=== PATIENT | male | born 1970 | race Caucasian/White ===

== ENCOUNTER 2018-08-13 11:18 | Outpatient (CLI) | payer OTHER | END 2018-08-13 11:19 | disposition home or self-care (01) | LOC: DTY/OP 11:18 | PROVIDERS: ATTEND Specialist | DX: Z01.818 Encounter for other preprocedural examination (principal); E66.01 Morbid (severe) obesity due to excess calories | CPT/HCPCS: 97802 ==

== ENCOUNTER 2018-09-13 11:19 | Outpatient (CLI) | payer OTHER | END 2018-09-13 11:20 | disposition home or self-care (01) | LOC: DTY/OP 11:19 | PROVIDERS: ATTEND Specialist | DX: Z01.818 Encounter for other preprocedural examination (principal); E66.01 Morbid (severe) obesity due to excess calories | CPT/HCPCS: 97802 ==

== ENCOUNTER 2018-10-11 11:38 | Outpatient (CLI) | payer OTHER | END 2018-10-11 11:39 | disposition home or self-care (01) | LOC: DTY/OP 11:38 | PROVIDERS: ATTEND Specialist | DX: Z01.818 Encounter for other preprocedural examination (principal); E66.01 Morbid (severe) obesity due to excess calories | CPT/HCPCS: 97802 ==

== ENCOUNTER 2018-11-18 10:32 | Outpatient (CLI) | payer OTHER | END 2018-11-18 10:33 | disposition home or self-care (01) | LOC: DTY/OP 10:32 | PROVIDERS: ATTEND Specialist | DX: Z01.818 Encounter for other preprocedural examination (principal); E66.01 Morbid (severe) obesity due to excess calories | CPT/HCPCS: 97802 ==